=== PATIENT | female | born 1965 | race Caucasian/White ===

== ENCOUNTER 2017-04-05 07:50 | Day surgery (SDC) | payer OTHER ==
[~2017-04-05 07:50] MED LIST: CIPRO500 MG; CIPRO500 MG PO; FLAGYL500MG; FLAGYL500MG PO; LEVSIN0.125 MG; LOSARTAN-HCTZ1 EACH
== END 2017-04-05 11:50 | disposition home or self-care (01) ==
LOC: AMB-ENDOS 07:50
DX: K57.30 Diverticulosis of large intestine without perforation or abscess without bleeding (principal); D12.8 Benign neoplasm of rectum

== ENCOUNTER 2017-10-05 12:29 | Emergency (ER) | payer OTHER ==
[~2017-10-05] VITALS: Ht 160 cm; Wt 83.9 kg
[2017-10-05] MEDS ORDERED: LEVSIN/SL0.125 MG (12:52)
[2017-10-05] MEDS ORDERED: PROVENT1 EACH (12:52)
== END 2017-10-05 23:54 | disposition home or self-care (01) ==
LOC: ER 12:29
DX: K57.92 Diverticulitis of intestine, part unspecified, without perforation or abscess without bleeding (principal); R10.32 Left lower quadrant pain

== ENCOUNTER 2017-11-03 09:15 | Inpatient (IN) | payer OTHER ==
[~2017-11-03] VITALS: Ht 160 cm; Wt 83.9 kg
[~2017-11-03 09:15] MED LIST changes: +LEVSIN/SL0.125 MG; +PROVENT1 EACH
[2017-11-03] MEDS ORDERED: PROBIOTIC1 EAC2 PO (12:34)
[2017-11-24] MEDS ORDERED: OXYC1TAB9 PO (16:31)
[2017-11-24] MEDS ORDERED: INTESTINEX680 M1 PO (16:31)
== END 2017-11-24 18:31 | disposition home or self-care (01) | DRG 330 ==
LOC: O/R 11-21 06:00 → SURG 11-21 06:00
PROVIDERS: Surgery; Urology
PROC: 0DBP4ZZ Excision of Rectum, Percutaneous Endoscopic Approach (ICD-10-PCS; 2017-11-21)
PROC: 0DJD8ZZ Inspection of Lower Intestinal Tract, Via Natural or Artificial Opening Endoscopic (ICD-10-PCS; 2017-11-21)
PROC: 0DTN4ZZ Resection of Sigmoid Colon, Percutaneous Endoscopic Approach (ICD-10-PCS; principal; 2017-11-21 07:00)
PROC: 0UBG4ZZ Excision of Vagina, Percutaneous Endoscopic Approach (ICD-10-PCS; 2017-11-21 07:00)
PROC: 0T788DZ Dilation of Bilateral Ureters with Intraluminal Device, Via Natural or Artificial Opening Endoscopic (ICD-10-PCS; 2017-11-23)
DX: K57.32 Diverticulitis of large intestine without perforation or abscess without bleeding (principal); N82.3 Fistula of vagina to large intestine

== ENCOUNTER 2020-04-12 18:12 | Emergency (ER) | payer OTHER ==
[~2020-04-12] VITALS: Ht 160 cm; Wt 86.2 kg
[~2020-04-12 18:12] MED LIST changes: +INTESTINEX680 M1 PO; +OXYC1TAB9 PO; +PROBIOTIC1 EAC2 PO
[2020-04-12] MEDS ORDERED: HYDRODIURIL12.5 MG (20:17)
[2020-04-12] MEDS ORDERED: MECLIZINE HCL25 MG PO (23:11)
[2020-04-12] MEDS ORDERED: INTESTINEX680 M1 PO (23:11)
[2020-04-12] MEDS ORDERED: PEPCID20 MG PO (23:11)
== END 2020-04-13 00:48 | disposition home or self-care (01) ==
LOC: ER 18:12
DX: R42 Dizziness and giddiness (principal); Z03.818 Encounter for observation for suspected exposure to other biological agents ruled out

== ENCOUNTER 2022-03-21 13:23 | Emergency (ER) | payer OTHER ==
[~2022-03-21] VITALS: Ht 160 cm; Wt 81.6 kg
[~2022-03-21 13:23] MED LIST changes: +HYDRODIURIL12.5 MG; +MECLIZINE HCL25 MG PO; +PEPCID20 MG PO
[2022-03-21] MEDS ORDERED: PEPCID AC20 MG PO (19:42)
== END 2022-03-21 19:52 | disposition home or self-care (01) ==
LOC: ER 13:23
DX: K29.70 Gastritis, unspecified, without bleeding (principal)

== ENCOUNTER 2024-10-15 09:48 | Inpatient (IN) | payer OTHER ==
[~2024-10-15] VITALS: Ht 152.4 cm; Wt 79.4 kg
[~2024-10-15 09:48] MED LIST changes: +PEPCID AC20 MG PO
[2024-10-15] MEDS ORDERED: KETOROLAC TROMETHAMINE 30 MG VIAL ONE (09:59)
[2024-10-15] MEDS ORDERED: 0.9 % SODIUM CHLORIDE 1,000 ML IV SCH ×2 (10:00→19:00)
[2024-10-15] MEDS ORDERED: KETOROLAC TROMETHAMINE 30 MG VIAL IV ONE ×2 (10:15→15:45)
[2024-10-15 11:39] LABS: BASO % 0.1 % (0.1-1.2); EOS # 0.00 (0.04-0.54); EOS % 0.0 % (0.7-7.0); LYMPH # 0.44 (1.18-3.74); LYMPH % 1.6 % (19.3-53.1); MEAN PLATELET VOLUME 10.40 fl (9.4-12.4); MONO # 0.66 (0.24-0.82); MONO % 2.4 % (4.7-12.5); NEUT # 24.04 (1.56-6.13); NEUT % 87.4 % (34.0-71.1); RED CELL DISTRIBUTION WIDTH 14.0 % (11.6-14.4)
[2024-10-15 11:48] LABS: BUN CREA RATIO 15.0 (7.0-25.0); CREATININE SERUM 3.02 mg/dL (0.55-1.02); GFR 15.85; GLUCOSE FASTING 143.0 mg/dL (65-100); OSMOLALITY SERUM 289.0 MOSM/KG (275-295)
[2024-10-15 12:34] LABS: BAND MAN 8.0 %; LYMPHOCYTE MAN 3.0 %; METAMYELOCYTE 2.0 %; MONOCYTE MAN 4.0 %; NEUTROPHILS MAN 76.0 %
[2024-10-15 12:38] LABS: URINE APPEARANCE Turbid; URINE BILIRRUBIN Small (NEGATIVE); URINE BLOOD Small; URINE COLOR Dark Yellow; URINE KETONE 15 (NEGATIVE); URINE LEUKOCYTE Trace; URINE NITRATE Negative; URINE UROBILINOGEN 1.0 E.U./dl
[2024-10-15 12:42] LABS: URINE BACTERIA 8779.1 uL (0.0-1933); URINE EPITHELIAL CELLS 137.5 uL (0.0-38.8); URINE RBC 26.5 uL (0.0-20.8); URINE WBC 193.2 uL (0.0-23.2)
[2024-10-15 12:47] LABS: URINE CAST > 21.83 uL (0.0-1.40); URINE GLUCOSE 250 MG/DL (NEGATIVE); URINE PROTEIN 100 (NEGATIVE)
[2024-10-15 12:53] LABS: URINE CRYSTALS MODERATE /HPF
[2024-10-15] MEDS ORDERED: CEFTRIAXONE SODIUM 1,000 MG VIAL IV ONE (14:15)
[2024-10-15] MEDS ORDERED: FAMOTIDINE/PF 20 MG in 0.9 % SODIUM CHLORIDE 8 ML IV PUSH SCH (18:50)
[2024-10-15] MEDS ORDERED: CEFTRIAXONE SODIUM 2,000 MG in 0.9 % SODIUM CHLORIDE 100 ML IV SCH (18:50)
[2024-10-15] MEDS ORDERED: AZITHROMYCIN 500 MG in DEXTROSE 5 % IN WATER 250 ML IV SCH (18:50)
[2024-10-15] MEDS ORDERED: IPRATROPIUM BROMIDE 0.5 MG/2.5 ML AMPUL.NEB IH SCH (18:56)
[2024-10-15] MEDS ORDERED: GUAIFEN/DEXTROMETHORPHAN/PE 10 ML BLIST.PACK PO SCH (18:57)
[2024-10-15] MEDS ORDERED: METHYLPREDNISOLONE SOD SUCC 125 MG VIAL IV ONE (19:00)
[2024-10-15] MEDS ORDERED: 0.9 % SODIUM CHLORIDE 1,000 ML IV ONE (19:00)
[2024-10-15] MEDS ORDERED: ACETAMINOPHEN 500 MG GEL..CAP PO PRN (19:00)
[2024-10-15 20:48] LABS: ABG PH 7.429 (7.35-7.45); ABG PO2 69.2 mmHg (80-100); BICARBONATE 18.4 mmol/l (23-25)
[2024-10-15 21:08] VITALS: BP 130/80
[2024-10-15 21:43] LABS: o2 21 %
[2024-10-15] MEDS ORDERED: MORPHINE SULFATE 4 MG/ML CARTRIDGE IV ONE (22:30)
[2024-10-15] MEDS ORDERED: KETOROLAC TROMETHAMINE 15 MG VIAL IV ONE (22:30)
[2024-10-15 22:44] LABS: D DIMER 1.61 MG/L
[2024-10-15 22:47] LABS: INR 1.37
[2024-10-15 23:37] VITALS: O2SAT 95
[2024-10-16] VITALS (8 sets, daily range): BP systolic 100–116; BP diastolic 67–75; O2SAT 90–99
[2024-10-16] MEDS ORDERED: hydrALAZINE HCL 20 MG VIAL IV PRN (08:30)
[2024-10-16] MEDS ORDERED: ENOXAPARIN SODIUM 30 MG/0.3 ML SYRINGE SUBCUTANEO SCH (09:00)
[2024-10-16] MEDS ORDERED: AMLODIPINE BESYLATE 5 MG TABLET PO SCH (09:00)
[2024-10-16] MEDS ORDERED: TRAMADOL HCL 50 MG TABLET PO PRN (10:15)
[2024-10-16 10:59] LABS: COVID-19 AG NEGATIVE (NEGATIVE)
[2024-10-16] MEDS ORDERED: IPRATROPIUM/ALBUTEROL SULFATE 3 ML AMPUL.NEB IH SCH (13:00)
[2024-10-16] MEDS ORDERED: METHYLPREDNISOLONE SOD SUCC 40 MG VIAL IV SCH (13:00)
[2024-10-16] MEDS ORDERED: TUBERCULIN,PURIF.PROT.DERIV. 10 SKIN.TEST SKIN.TEST ID NR (16:10)
[2024-10-16] MEDS ORDERED: LEVALBUTEROL HCL 1.25 MG/3 ML SOLUTION IH SCH (21:00)
[2024-10-16] MEDS ORDERED: AZITHROMYCIN 500 MG VIAL IV SCH (21:00)
[2024-10-16] MEDS ORDERED: CEFTRIAXONE SODIUM 2,000 MG in 0.9 % SODIUM CHLORIDE 100 ML IV SCH (21:00)
[2024-10-16] MEDS ORDERED: AZITHROMYCIN 500 MG in DEXTROSE 5 % IN WATER 250 ML IV SCH (21:00)
[2024-10-17] VITALS (8 sets, daily range): BP systolic 132–143; BP diastolic 78–88; O2SAT 89–99
[2024-10-17 06:46] LABS: ALT/SGPT 15.0 U/L (12-78); AST/SGOT 15.0 U/L (15-37); BILIRUBIN TOTAL 0.3 mg/dL (0.3-1.2); BUN CREA RATIO 46.0 (7.0-25.0); CREATININE SERUM 1.27 mg/dL (0.55-1.02); GFR 43.07; GLOBULINA 3.5 G/DL (2.4-3.5); GLUCOSE FASTING 138.0 mg/dL (65-100); LDH 260.0 U/L (84-246); OSMOLALITY SERUM 296.0 MOSM/KG (275-295)
[2024-10-17 06:49] LABS: BASO % 0.0 % (0.1-1.2); EOS # 0.00 (0.04-0.54); EOS % 0.0 % (0.7-7.0); LYMPH # 0.52 (1.18-3.74); LYMPH % 1.7 % (19.3-53.1); MEAN PLATELET VOLUME 11.40 fl (9.4-12.4); MONO # 0.58 (0.24-0.82); MONO % 1.9 % (4.7-12.5); NEUT # 29.41 (1.56-6.13); NEUT % 95.6 % (34.0-71.1); RED CELL DISTRIBUTION WIDTH 13.8 % (11.6-14.4)
[2024-10-17] MEDS ORDERED: LINEZOLID 600 MG TABLET PO SCH (21:00)
[2024-10-18] VITALS (9 sets, daily range): BP systolic 160–170; BP diastolic 84–100; O2SAT 95–98
[2024-10-18 06:10] LABS: BASO % 0.0 % (0.1-1.2); EOS # 0.01 (0.04-0.54); EOS % 0.0 % (0.7-7.0); LYMPH # 0.62 (1.18-3.74); LYMPH % 2.6 % (19.3-53.1); MEAN PLATELET VOLUME 11.10 fl (9.4-12.4); MONO # 1.06 (0.24-0.82); MONO % 4.4 % (4.7-12.5); NEUT # 21.12 (1.56-6.13); NEUT % 88.1 % (34.0-71.1); RED CELL DISTRIBUTION WIDTH 14.0 % (11.6-14.4)
[2024-10-18 07:06] LABS: ALT/SGPT 17.0 U/L (12-78); AST/SGOT 13.0 U/L (15-37); BILIRUBIN TOTAL 0.35 mg/dL (0.3-1.2); BUN CREA RATIO 49.0 (7.0-25.0); CREATININE SERUM 0.61 mg/dL (0.55-1.02); GFR 100.39; GLOBULINA 3.5 G/DL (2.4-3.5); GLUCOSE FASTING 152.0 mg/dL (65-100); OSMOLALITY SERUM 292.0 MOSM/KG (275-295)
[2024-10-18 07:19] LABS: BAND MAN 7.0 %; LYMPHOCYTE MAN 1.0 %; MONOCYTE MAN 4.0 %; NEUTROPHILS MAN 85.0 %
[2024-10-18] MEDS ORDERED: NICOTINE 21MG/24HR PATCH.TD24 TD SCH (09:00)
[2024-10-18] MEDS ORDERED: LACTOBACILLUS ACIDOPHILUS 1 CAP CAP PO SCH (13:00)
[2024-10-18] MEDS ORDERED: SODIUM CHLORIDE 0.45 % 1,000 ML IV SCH (15:00)
[2024-10-18] MEDS ORDERED: MORPHINE SULFATE 4 MG/ML CARTRIDGE IV PRN (23:45)
[2024-10-18] MEDS ORDERED: TRAMADOL HCL 50 MG TABLET PO PRN (23:45)
[2024-10-19] VITALS (9 sets, daily range): BP systolic 153–186; BP diastolic 85–98; O2SAT 92–99
[2024-10-19] MEDS ORDERED: hydrALAZINE HCL 50 MG,hydrALAZINE HCL 25 MG PO SCH (09:00)
[2024-10-19] MEDS ORDERED: IRBESARTAN 150 MG TABLET PO SCH (09:00)
[2024-10-19 09:19] LABS: BASO % 0.7 % (0.1-1.2); EOS # 0.00 (0.04-0.54); EOS % 0.0 % (0.7-7.0); LYMPH # 0.97 (1.18-3.74); LYMPH % 5.1 % (19.3-53.1); MEAN PLATELET VOLUME 11.00 fl (9.4-12.4); MONO # 1.36 (0.24-0.82); MONO % 7.2 % (4.7-12.5); NEUT # 13.53 (1.56-6.13); NEUT % 71.2 % (34.0-71.1); RED CELL DISTRIBUTION WIDTH 14.6 % (11.6-14.4)
[2024-10-19 09:51] LABS: ALT/SGPT 39.0 U/L (12-78); AST/SGOT 23.0 U/L (15-37); BILIRUBIN TOTAL 0.36 mg/dL (0.3-1.2); BUN CREA RATIO 40.0 (7.0-25.0); CREATININE SERUM 0.53 mg/dL (0.55-1.02); GFR 118.07; GLOBULINA 3.4 G/DL (2.4-3.5); GLUCOSE FASTING 130.0 mg/dL (65-100); LDH 307.0 U/L (84-246); OSMOLALITY SERUM 292.0 MOSM/KG (275-295)
[2024-10-19 10:02] LABS: BAND MAN 9.0 %; LYMPHOCYTE MAN 3.0 %; MONOCYTE MAN 14.0 %; NEUTROPHILS MAN 74.0 %
[2024-10-19] MEDS ORDERED: POLYETHYLENE GLYCOL 3350 17 GM BLIST.PACK PO SCH (17:00)
[2024-10-19] MEDS ORDERED: AMINO ACIDS/PROTEIN HYDROLYS 30 ML BLIST.PACK PO SCH (17:00)
[2024-10-20] VITALS (8 sets, daily range): BP systolic 151–194; BP diastolic 89–110; O2SAT 90–99
[2024-10-20] MEDS ORDERED: METHYLPREDNISOLONE SOD SUCC 40 MG VIAL IV SCH (21:00)
[2024-10-21] VITALS (10 sets, daily range): BP systolic 144–167; BP diastolic 83–93; O2SAT 90–99
[2024-10-21] MEDS ORDERED: PATIENTS OWN MEDICATION (MEDICAMENTO EN PISO) PO SCH (09:00)
[2024-10-21] MEDS ORDERED: NIFEDIPINE 30 MG TAB.SA.OSM PO SCH (09:00)
[2024-10-21] MEDS ORDERED: LIDOCAINE HCL 1% 20 ML VIAL IJ STA (19:38)
[2024-10-21] MEDS ORDERED: MORPHINE SULFATE 4 MG/ML CARTRIDGE IV ONE (20:00)
[2024-10-21] MEDS ORDERED: IPRATROPIUM BROMIDE 0.5 MG/2.5 ML AMPUL.NEB IH STA (20:38)
[2024-10-21] MEDS ORDERED: LEVALBUTEROL HCL 1.25 MG/3 ML SOLUTION IH STA (20:39)
[2024-10-21] MEDS ORDERED: MORPHINE SULFATE 4 MG/ML VIAL IV PRN (20:45)
[2024-10-21] MEDS ORDERED: TRAMADOL HCL 50 MG TABLET PO PRN (20:45)
[2024-10-22] VITALS (11 sets, daily range): BP systolic 112–158; BP diastolic 61–88; O2SAT 90–100
[2024-10-22 06:40] LABS: BASO % 0.2 % (0.1-1.2); EOS # 0.01 (0.04-0.54); EOS % 0.0 % (0.7-7.0); LYMPH # 2.04 (1.18-3.74); LYMPH % 10.2 % (19.3-53.1); MEAN PLATELET VOLUME 10.40 fl (9.4-12.4); MONO # 1.00 (0.24-0.82); MONO % 5.0 % (4.7-12.5); NEUT # 15.96 (1.56-6.13); NEUT % 79.6 % (34.0-71.1); RED CELL DISTRIBUTION WIDTH 14.6 % (11.6-14.4)
[2024-10-22 07:54] LABS: NEUTROPHILS MAN 83.0 %
[2024-10-22 07:55] LABS: BAND MAN 1.0 %; LYMPHOCYTE MAN 7.0 %; MONOCYTE MAN 9.0 %
[2024-10-22] MEDS ORDERED: PANTOPRAZOLE SODIUM 40 MG TABLET.DR PO SCH (09:00)
[2024-10-22 09:12] LABS: BUN CREA RATIO 39.0 (7.0-25.0); CREATININE SERUM 0.44 mg/dL (0.55-1.02); GFR 146.36; GLOBULINA 3.3 G/DL (2.4-3.5); GLUCOSE FASTING 108.0 mg/dL (65-100); OSMOLALITY SERUM 289.0 MOSM/KG (275-295)
[2024-10-22 09:13] LABS: ALT/SGPT 38.0 U/L (12-78); AST/SGOT 10.0 U/L (15-37); BILIRUBIN TOTAL 0.54 mg/dL (0.3-1.2)
[2024-10-22] MEDS ORDERED: MEROPENEM 500 MG/VIAL VIAL IV SCH (14:00)
[2024-10-22 18:34] LABS: ABG PH 7.453 (7.35-7.45); ABG PO2 109.1 mmHg (80-100); BICARBONATE 29.7 mmol/l (23-25); o2 100 %
[2024-10-23 04:04] VITALS: BP 137/78; O2SAT 99
[2024-10-23 07:07] VITALS: BP 139/73; O2SAT 19
[2024-10-23 12:00] VITALS: BP 129/57; O2SAT 98
[2024-10-23 15:35] VITALS: BP 129/68; O2SAT 95
[2024-10-23 20:00] VITALS: BP 100/55; O2SAT 100
[2024-10-23] MEDS ORDERED: TRAMADOL HCL 50 MG TABLET PO PRN (21:45)
[2024-10-23] MEDS ORDERED: MORPHINE SULFATE 4 MG/ML VIAL IV PRN (21:45)
[2024-10-23 23:42] VITALS: BP 127/79; O2SAT 100
[2024-10-24 04:00] VITALS: BP 133/74; O2SAT 100
[2024-10-24 07:23] VITALS: BP 114/63; O2SAT 100
[2024-10-24 08:09] LABS: BASO % 0.1 % (0.1-1.2); EOS # 0.08 (0.04-0.54); EOS % 0.3 % (0.7-7.0); LYMPH # 1.22 (1.18-3.74); LYMPH % 4.2 % (19.3-53.1); MEAN PLATELET VOLUME 10.00 fl (9.4-12.4); MONO # 1.34 (0.24-0.82); MONO % 4.6 % (4.7-12.5); NEUT # 25.88 (1.56-6.13); NEUT % 89.5 % (34.0-71.1); RED CELL DISTRIBUTION WIDTH 14.4 % (11.6-14.4)
[2024-10-24 09:29] LABS: ALT/SGPT 27.0 U/L (12-78); AST/SGOT 9.0 U/L (15-37); BILIRUBIN TOTAL 0.66 mg/dL (0.3-1.2); BUN CREA RATIO 39.0 (7.0-25.0); CREATININE SERUM 0.31 mg/dL (0.55-1.02); GFR 219.24; GLOBULINA 3.1 G/DL (2.4-3.5); GLUCOSE FASTING 112.0 mg/dL (65-100); LDH 191.0 U/L (84-246); OSMOLALITY SERUM 280.0 MOSM/KG (275-295)
[2024-10-24 15:52] VITALS: O2SAT 98
[2024-10-24] MEDS ORDERED: FLUCONAZOLE IN NACL,ISO-OSM 400 MG/200 ML PIGGYBAG IV NR (16:00)
[2024-10-24 20:00] VITALS: O2SAT 95
[2024-10-24 23:08] VITALS: BP 129/68; O2SAT 93
[2024-10-25 04:03] VITALS: BP 136/81; O2SAT 94
[2024-10-25 06:52] LABS: BASO % 0.1 % (0.1-1.2); EOS # 0.10 (0.04-0.54); EOS % 0.5 % (0.7-7.0); LYMPH # 1.31 (1.18-3.74); LYMPH % 6.7 % (19.3-53.1); MEAN PLATELET VOLUME 10.60 fl (9.4-12.4); MONO # 1.24 (0.24-0.82); MONO % 6.3 % (4.7-12.5); NEUT # 16.72 (1.56-6.13); NEUT % 85.3 % (34.0-71.1); RED CELL DISTRIBUTION WIDTH 14.6 % (11.6-14.4)
[2024-10-25 07:15] VITALS: BP 129/71; O2SAT 97
[2024-10-25 12:00] VITALS: BP 118/55; O2SAT 97
[2024-10-25] MEDS ORDERED: FLUCONAZOLE IN NACL,ISO-OSM 200 MG/100 ML PIGGYBAG IV SCH (12:00)
[2024-10-25 15:09] VITALS: BP 109/58; O2SAT 95
[2024-10-25] MEDS ORDERED: GUAIFEN/DEXTROMETHORPHAN/PE 10 ML BLIST.PACK PO SCH (17:00)
[2024-10-25] MEDS ORDERED: MIDAZOLAM HCL 2 MG/2 ML VIAL IV PUSH ONE (19:30)
[2024-10-25] MEDS ORDERED: fentaNYL CITRATE 50 MCG/ML AMPUL IV PUSH ONE (19:30)
[2024-10-25 21:00] VITALS: BP 125/60; O2SAT 92
[2024-10-25] MEDS ORDERED: METHYLPREDNISOLONE SOD SUCC 40 MG VIAL IM SCH (21:00)
[2024-10-25 23:13] VITALS: BP 99/73; O2SAT 92
[2024-10-26] MEDS ORDERED: TRAMADOL HCL 50 MG TABLET PO PRN (00:30)
[2024-10-26] MEDS ORDERED: MORPHINE SULFATE 4 MG/ML CARTRIDGE IV PRN (00:30)
[2024-10-26 04:10] VITALS: BP 115/64; O2SAT 94
[2024-10-26] MEDS ORDERED: METHYLPREDNISOLONE SOD SUCC 40 MG VIAL IV SCH (05:00)
[2024-10-26 07:24] VITALS: BP 127/67; O2SAT 92
[2024-10-26 10:10] LABS: ABG PH 7.448 (7.35-7.45); ABG PO2 60.1 mmHg (80-100); BICARBONATE 26.5 mmol/l (23-25)
[2024-10-26 11:10] LABS: o2 46 %
[2024-10-26 12:00] VITALS: BP 149/93; O2SAT 95
[2024-10-26 16:00] VITALS: BP 135/66; O2SAT 97
[2024-10-26] MEDS ORDERED: ENOXAPARIN SODIUM 40 MG/0.4 ML SYRINGE SUBCUTANEO SCH (17:00)
[2024-10-27] VITALS: BP 160/81; O2SAT 96
[2024-10-27 07:13] LABS: BASO % 0.1 % (0.1-1.2); EOS # 0.00 (0.04-0.54); EOS % 0.0 % (0.7-7.0); LYMPH # 0.39 (1.18-3.74); LYMPH % 2.7 % (19.3-53.1); MEAN PLATELET VOLUME 10.30 fl (9.4-12.4); MONO # 0.71 (0.24-0.82); MONO % 4.9 % (4.7-12.5); NEUT # 13.33 (1.56-6.13); NEUT % 91.5 % (34.0-71.1); RED CELL DISTRIBUTION WIDTH 14.3 % (11.6-14.4)
[2024-10-27 07:22] VITALS: BP 123/55; O2SAT 100
[2024-10-27 07:47] LABS: ALT/SGPT 27.0 U/L (12-78); AST/SGOT 13.0 U/L (15-37); BILIRUBIN TOTAL 0.38 mg/dL (0.3-1.2); BUN CREA RATIO 45.0 (7.0-25.0); CREATININE SERUM 0.4 mg/dL (0.55-1.02); GFR 163.37; GLOBULINA 3.9 G/DL (2.4-3.5); GLUCOSE FASTING 151.0 mg/dL (65-100); OSMOLALITY SERUM 288.0 MOSM/KG (275-295)
[2024-10-27 12:00] VITALS: O2SAT 97
[2024-10-27 15:10] VITALS: BP 151/72; O2SAT 98
[2024-10-27 18:35] VITALS: BP 120/75; O2SAT 96
[2024-10-27] MEDS ORDERED: ZOLPIDEM TARTRATE 5 MG TABLET PO PRN (21:00)
[2024-10-28 03:10] VITALS: BP 131/76; O2SAT 97
[2024-10-28 07:55] LABS: BASO % 0.1 % (0.1-1.2); EOS # 0.00 (0.04-0.54); EOS % 0.0 % (0.7-7.0); LYMPH # 0.34 (1.18-3.74); LYMPH % 2.5 % (19.3-53.1); MEAN PLATELET VOLUME 10.10 fl (9.4-12.4); MONO # 0.55 (0.24-0.82); MONO % 4.0 % (4.7-12.5); NEUT # 12.75 (1.56-6.13); NEUT % 92.7 % (34.0-71.1); RED CELL DISTRIBUTION WIDTH 14.6 % (11.6-14.4)
[2024-10-28 08:00] VITALS: BP 132/71; O2SAT 95
[2024-10-28 08:13] LABS: ALT/SGPT 36.0 U/L (12-78); AST/SGOT 15.0 U/L (15-37); BILIRUBIN TOTAL 0.2 mg/dL (0.3-1.2); BUN CREA RATIO 46.0 (7.0-25.0); CREATININE SERUM 0.46 mg/dL (0.55-1.02); GFR 139.04; GLOBULINA 3.8 G/DL (2.4-3.5); GLUCOSE FASTING 168.0 mg/dL (65-100); OSMOLALITY SERUM 288.0 MOSM/KG (275-295)
[2024-10-28 08:14] VITALS: BP 132/71; O2SAT 95
[2024-10-28] MEDS ORDERED: AMINO ACIDS/PROTEIN HYDROLYS 30 ML BLIST.PACK PO SCH (13:00)
[2024-10-28 17:04] VITALS: BP 144/69; O2SAT 96
[2024-10-28] MEDS ORDERED: TRAMADOL HCL 50 MG TABLET PO PRN (23:30)
[2024-10-29 00:51] VITALS: BP 130/77; O2SAT 98
[2024-10-29 07:48] LABS: BASO % 0.1 % (0.1-1.2); EOS # 0.00 (0.04-0.54); EOS % 0.0 % (0.7-7.0); LYMPH # 0.32 (1.18-3.74); LYMPH % 3.7 % (19.3-53.1); MEAN PLATELET VOLUME 10.50 fl (9.4-12.4); MONO # 0.39 (0.24-0.82); MONO % 4.5 % (4.7-12.5); NEUT # 7.90 (1.56-6.13); NEUT % 91.1 % (34.0-71.1); RED CELL DISTRIBUTION WIDTH 14.2 % (11.6-14.4)
[2024-10-29 08:00] VITALS: BP 148/84; O2SAT 96
[2024-10-29] MEDS ORDERED: SOD FERRIC GLUC COMPLX/SUCROSE 62.5 MG in 0.9 % SODIUM CHLORIDE 50 ML IV SCH (09:00)
[2024-10-29 12:41] LABS: ALT/SGPT 49.0 U/L (12-78); AST/SGOT 15.0 U/L (15-37); BILIRUBIN TOTAL 0.37 mg/dL (0.3-1.2); BUN CREA RATIO 30.0 (7.0-25.0); CREATININE SERUM 0.63 mg/dL (0.55-1.02); GFR 96.72; GLOBULINA 4.1 G/DL (2.4-3.5); OSMOLALITY SERUM 290.0 MOSM/KG (275-295)
[2024-10-29 12:42] LABS: GLUCOSE FASTING 282.0 mg/dL (65-100)
[2024-10-29 17:57] VITALS: BP 137/75; O2SAT 97
[2024-10-30] MEDS ORDERED: METHYLPREDNISOLONE SOD SUCC 40 MG VIAL IV SCH (01:00)
[2024-10-30 08:00] VITALS: BP 157/84; O2SAT 97
[2024-10-30 17:13] VITALS: BP 139/70; O2SAT 96
[2024-10-31 01:04] VITALS: BP 126/73; O2SAT 98
[2024-10-31] MEDS ORDERED: TRAMADOL HCL 50 MG TABLET PO PRN (07:15)
[2024-10-31 09:33] LABS: ABG PH 7.434 (7.35-7.45); ABG PO2 86.5 mmHg (80-100); BICARBONATE 25.7 mmol/l (23-25)
[2024-10-31 15:55] LABS: o2 21 %
[2024-10-31 17:00] VITALS: BP 145/96; O2SAT 97
[2024-10-31] MEDS ORDERED: AMINO ACIDS 1 EACH TABLET PO SCH (17:00)
[2024-11-01 03:30] VITALS: BP 124/72; O2SAT 95
[2024-11-01 06:51] LABS: BASO % 0.0 % (0.1-1.2); EOS # 0.00 (0.04-0.54); EOS % 0.0 % (0.7-7.0); LYMPH # 0.49 (1.18-3.74); LYMPH % 8.6 % (19.3-53.1); MEAN PLATELET VOLUME 9.40 fl (9.4-12.4); MONO # 0.32 (0.24-0.82); MONO % 5.6 % (4.7-12.5); NEUT # 4.85 (1.56-6.13); NEUT % 85.4 % (34.0-71.1); RED CELL DISTRIBUTION WIDTH 13.8 % (11.6-14.4)
[2024-11-01 07:44] LABS: ALT/SGPT 47.0 U/L (12-78); AST/SGOT 10.0 U/L (15-37); BILIRUBIN TOTAL 0.55 mg/dL (0.3-1.2); BUN CREA RATIO 34.0 (7.0-25.0); CREATININE SERUM 0.47 mg/dL (0.55-1.02); GFR 135.63; GLOBULINA 3.6 G/DL (2.4-3.5); GLUCOSE FASTING 173.0 mg/dL (65-100); OSMOLALITY SERUM 281.0 MOSM/KG (275-295)
[2024-11-01 08:00] VITALS: BP 143/83; O2SAT 98
[2024-11-01 16:00] VITALS: BP 120/71; O2SAT 97
[2024-11-01] MEDS ORDERED: MIDAZOLAM HCL 2 MG/2 ML VIAL IV PUSH ONE (17:45)
[2024-11-01] MEDS ORDERED: fentaNYL CITRATE 50 MCG/ML AMPUL IV PUSH ONE (18:00)
[2024-11-02 01:33] VITALS: BP 126/78; O2SAT 100
[2024-11-02 13:45] VITALS: BP 149/83; O2SAT 98
[2024-11-02 17:56] VITALS: BP 109/74; O2SAT 97
[2024-11-03 00:41] VITALS: BP 100/60; O2SAT 95
[2024-11-03 08:00] VITALS: BP 128/65; O2SAT 98
[2024-11-03] MEDS ORDERED: TRAMADOL HCL 50 MG TABLET PO PRN (10:45)
[2024-11-03] MEDS ORDERED: MAGNESIUM SULFATE IN WATER 50 ML IV NR (12:00)
[2024-11-03 16:32] VITALS: BP 90/60; O2SAT 99
[2024-11-03 17:29] VITALS: BP 101/58; O2SAT 100
[2024-11-03 19:00] VITALS: BP 112/69
[2024-11-04 01:05] VITALS: BP 101/61; O2SAT 97
[2024-11-04 05:32] LABS: BASO % 0.1 % (0.1-1.2); EOS # 0.23 (0.04-0.54); EOS % 2.7 % (0.7-7.0); LYMPH # 1.39 (1.18-3.74); LYMPH % 16.2 % (19.3-53.1); MEAN PLATELET VOLUME 9.50 fl (9.4-12.4); MONO # 0.56 (0.24-0.82); MONO % 6.5 % (4.7-12.5); NEUT # 6.37 (1.56-6.13); NEUT % 74.2 % (34.0-71.1); RED CELL DISTRIBUTION WIDTH 14.6 % (11.6-14.4)
[2024-11-04 05:52] LABS: ALT/SGPT 33.0 U/L (12-78); AST/SGOT 9.0 U/L (15-37); BILIRUBIN TOTAL 0.35 mg/dL (0.3-1.2); BUN CREA RATIO 34.0 (7.0-25.0); CREATININE SERUM 0.58 mg/dL (0.55-1.02); GFR 106.4; GLOBULINA 3.2 G/DL (2.4-3.5); GLUCOSE FASTING 141.0 mg/dL (65-100); OSMOLALITY SERUM 281.0 MOSM/KG (275-295)
[2024-11-04 10:31] VITALS: BP 101/63; O2SAT 95
[2024-11-04 15:56] VITALS: BP 117/78; O2SAT 97
[2024-11-05 00:37] VITALS: BP 108/61; O2SAT 96
[2024-11-05 08:17] VITALS: BP 93/57; O2SAT 98
[2024-11-05 17:06] VITALS: BP 102/68; O2SAT 100
[2024-11-05] MEDS ORDERED: LEVALBUTEROL HCL 1.25 MG/3 ML SOLUTION IH SCH (18:00)
[2024-11-06 00:05] VITALS: BP 130/75; O2SAT 97
[2024-11-06 08:24] VITALS: BP 135/77; O2SAT 100
[2024-11-07 00:10] VITALS: BP 132/91; O2SAT 95
[2024-11-07 06:48] LABS: BASO % 0.1 % (0.1-1.2); EOS # 0.31 (0.04-0.54); EOS % 4.6 % (0.7-7.0); LYMPH # 0.85 (1.18-3.74); LYMPH % 12.7 % (19.3-53.1); MEAN PLATELET VOLUME 9.60 fl (9.4-12.4); MONO # 0.68 (0.24-0.82); MONO % 10.1 % (4.7-12.5); NEUT # 4.83 (1.56-6.13); NEUT % 72.1 % (34.0-71.1); RED CELL DISTRIBUTION WIDTH 14.7 % (11.6-14.4)
[2024-11-07] MEDS ORDERED: TRAMADOL HCL 50 MG TABLET PO PRN (07:30)
[2024-11-07 07:45] LABS: ALT/SGPT 24.0 U/L (12-78); AST/SGOT 7.0 U/L (15-37); BILIRUBIN TOTAL 0.31 mg/dL (0.3-1.2); BUN CREA RATIO 31.0 (7.0-25.0); CREATININE SERUM 0.49 mg/dL (0.55-1.02); GFR 129.26; GLOBULINA 3.2 G/DL (2.4-3.5); GLUCOSE FASTING 104.0 mg/dL (65-100); OSMOLALITY SERUM 282.0 MOSM/KG (275-295)
[2024-11-07 08:23] VITALS: BP 107/70; O2SAT 97
[2024-11-07 16:00] VITALS: BP 109/71; O2SAT 95
[2024-11-08 00:59] VITALS: BP 114/70; O2SAT 100
[2024-11-08 08:00] VITALS: BP 152/83; O2SAT 96
[2024-11-08] MEDS ORDERED: PRE PROTEIN1 EACH PO (10:03)
[2024-11-08] MEDS ORDERED: PANTOPRAZOLE SO40 MG PO (10:03)
[2024-11-08] MEDS ORDERED: NICOTINE 21MG/24HR P TD (10:03)
[2024-11-08] MEDS ORDERED: FAMOTIDINE20 MG PO (10:03)
[2024-11-08] MEDS ORDERED: ALTIPRES LIQUI473 ML PO (10:03)
[2024-11-08] MEDS ORDERED: TRAMADOL HCL50 MG PO (10:03)
[2024-11-08] MEDS ORDERED: ZOLPIDEM TARTRAT5 MG PO (10:03)
[2024-11-08] MEDS ORDERED: INTESTINEX680 M1 PO (10:03)
[2024-11-08] MEDS ORDERED: XOPENEX CO1.25 MG/0. IH (10:03)
== END 2024-11-08 15:24 | disposition home or self-care (01) | DRG 853 ==
LOC: ER 09:48 → MEDJ 19:29 → ICU 10-22 18:40 → SURG 10-27 19:09
PROVIDERS: Emergency Medicine; General Practice; Internal Medicine; Internal Medicine Infectious Disease; Internal Medicine Nephrology; ADMIT Internal Medicine; ATTEND Internal Medicine
PROC: BW21ZZZ Computerized Tomography (CT Scan) of Abdomen and Pelvis (ICD-10-PCS; principal; 2024-10-15)
PROC: BB24ZZZ Computerized Tomography (CT Scan) of Bilateral Lungs (ICD-10-PCS; 2024-10-15)
PROC: 3E0F7GC Introduction of Other Therapeutic Substance into Respiratory Tract, Via Natural or Artificial Opening (ICD-10-PCS; 2024-10-15)
PROC: 4A12X4Z Monitoring of Cardiac Electrical Activity, External Approach (ICD-10-PCS; 2024-10-15)
PROC: 0W9B00Z Drainage of Left Pleural Cavity with Drainage Device, Open Approach (ICD-10-PCS; 2024-10-21)
PROC: BB24YZZ Computerized Tomography (CT Scan) of Bilateral Lungs using Other Contrast (ICD-10-PCS; 2024-10-24)
PROC: 0W9F3ZZ Drainage of Abdominal Wall, Percutaneous Approach (ICD-10-PCS; 2024-10-25)
PROC: 0W9B40Z Drainage of Left Pleural Cavity with Drainage Device, Percutaneous Endoscopic Approach (ICD-10-PCS; 2024-10-25)
PROC: BB24ZZZ Computerized Tomography (CT Scan) of Bilateral Lungs (ICD-10-PCS; 2024-10-31)
PROC: 02HV33Z Insertion of Infusion Device into Superior Vena Cava, Percutaneous Approach (ICD-10-PCS; 2024-11-07)
DX: A41.9 Sepsis, unspecified organism (principal); J18.9 Pneumonia, unspecified organism; N17.8 Other acute kidney failure; J93.83 Other pneumothorax; Z72.0 Tobacco use; I10 Essential (primary) hypertension; K52.9 Noninfective gastroenteritis and colitis, unspecified; K29.50 Unspecified chronic gastritis without bleeding

== ENCOUNTER 2024-12-20 23:07 | Inpatient (IN) | payer OTHER ==
[~2024-12-20] VITALS: Ht 160 cm; Wt 81.6 kg
[~2024-12-20 23:07] MED LIST changes: +ALTIPRES LIQUI473 ML PO; +FAMOTIDINE20 MG PO; +NICOTINE 21MG/24HR P TD; +PANTOPRAZOLE SO40 MG PO; +PRE PROTEIN1 EACH PO; +TRAMADOL HCL50 MG PO; +XOPENEX CO1.25 MG/0. IH; +ZOLPIDEM TARTRAT5 MG PO
[2024-12-20] MEDS ORDERED: NORVASC5 MG PO (23:27)
--- NOTE | 2024-12-20 23:29 | NUR ---
PACIENTE ALERTA Y ORIENTADA X3. REFIERE VENIR POR REFERIDO DE DR MIMI CHILDRESS PARA ADMISION POR PROCEDIMIENTO. SE ESTIMAN VITALES Y SE UBICA.
[2024-12-21] MEDS ORDERED: ALBUTEROL SULFATE 3 ML/2.5 MG AMPUL.NEB IH SCH (01:41)
[2024-12-21] MEDS ORDERED: MEROPENEM 500 MG/VIAL VIAL IV SCH ×4 (01:42→18:00)
[2024-12-21] MEDS ORDERED: 0.9 % SODIUM CHLORIDE 1,000 ML IV ONE (01:45)
--- NOTE | 2024-12-21 02:11 | NUR ---
RN DERRICK EDUCA ACERCA DE [place] ORDENADO Y REFIERE ENTENDER. CANALIZA Y COLECTA MUESTRAS DE LABORATORIO MEDIANTE MEDIDAS ASEPTICAS. JEANNE ENVASE DE UA.
[2024-12-21 02:15] LABS: BASO % 0.6 % (0.1-1.2); EOS # 0.18 (0.04-0.54); EOS % 2.5 % (0.7-7.0); LYMPH # 1.54 (1.18-3.74); LYMPH % 21.8 % (19.3-53.1); MEAN PLATELET VOLUME 9.40 fl (9.4-12.4); MONO # 0.64 (0.24-0.82); MONO % 9.1 % (4.7-12.5); NEUT # 4.65 (1.56-6.13); NEUT % 65.9 % (34.0-71.1); RED CELL DISTRIBUTION WIDTH 14.5 % (11.6-14.4)
[2024-12-21 02:29] LABS: URINE APPEARANCE Clear; URINE BILIRRUBIN Negative (NEGATIVE); URINE BLOOD Negative; URINE COLOR Yellow; URINE GLUCOSE Negative (NEGATIVE); URINE KETONE Negative (NEGATIVE); URINE LEUKOCYTE Negative; URINE NITRATE Negative; URINE PROTEIN Negative (NEGATIVE); URINE UROBILINOGEN 0.2 E.U./dl
[2024-12-21 02:33] LABS: URINE BACTERIA 149.9 uL (0.0-1933); URINE EPITHELIAL CELLS 4.9 uL (0.0-38.8); URINE RBC 2.7 uL (0.0-20.8); URINE WBC 14.7 uL (0.0-23.2)
[2024-12-21 02:34] LABS: URINE CAST 0.00 uL (0.0-1.40)
[2024-12-21 02:39] LABS: ALT/SGPT 24.0 U/L (12-78); AST/SGOT 8.0 U/L (15-37); BILIRUBIN TOTAL 0.28 mg/dL (0.3-1.2); BUN CREA RATIO 27.0 (7.0-25.0); CREATININE SERUM 0.66 mg/dL (0.55-1.02); GFR 91.66; GLOBULINA 3.4 G/DL (2.4-3.5); GLUCOSE FASTING 131.0 mg/dL (65-100); OSMOLALITY SERUM 292.0 MOSM/KG (275-295)
[2024-12-21 02:45] LABS: INR 1.0
[2024-12-21] MEDS ORDERED: ALBUTEROL SULFATE 3 ML/2.5 MG AMPUL.NEB IH ONE ×3 (03:03→13:19)
--- NOTE | 2024-12-21 08:45 | NUR ---
PTE FEMENIAN DE 59 YRS ALERTA CONCIENTE Y TRANQUILA EN CAMA CON BARBADAS ELEVADA,SE LE CHERYL S/V Y SE DOCIUEMTA. SE MANIENE CONSULTADO CONE EL DR WESTFALL SE MANTIENE BAJO OBSERVCION.
[2024-12-21] MEDS ORDERED: LEVALBUTEROL HCL 1.25 MG/3 ML SOLUTION IH ONE (15:36)
[2024-12-21] MEDS ORDERED: FAMOTIDINE/PF 20 MG/2 ML VIAL IV PUSH SCH (16:52)
[2024-12-21] MEDS ORDERED: ENOXAPARIN SODIUM 40 MG/0.4 ML SYRINGE SUBCUTANEO SCH (16:52)
[2024-12-21] MEDS ORDERED: LACTOBACILLUS ACIDOPHILUS 1 CAP CAP PO SCH (17:00)
[2024-12-21] MEDS ORDERED: ONDANSETRON HCL 2 MG/ML VIAL IV PRN (17:00)
[2024-12-21] MEDS ORDERED: FAMOTIDINE/PF 20 MG/2 ML VIAL ONE (18:19)
[2024-12-21] MEDS ORDERED: LACTOBACILLUS ACIDOPHILUS 1 CAP CAP PO ONE (18:19)
[2024-12-21] MEDS ORDERED: ENOXAPARIN SODIUM 40 MG/0.4 ML SYRINGE SUBCUTANEO ONE (18:19)
[2024-12-21 19:15] VITALS: BP 137/79; O2SAT 96
[2024-12-21 21:42] VITALS: BP 128/66
[2024-12-22 02:12] VITALS: BP 154/64; O2SAT 99
[2024-12-22 08:03] LABS: ERYTHROCYTE SEDIMENTATION RATE 20 mm/hr (0-30)
[2024-12-22 08:06] LABS: INR 0.97
[2024-12-22 08:12] LABS: BASO % 0.3 % (0.1-1.2); EOS # 0.18 (0.04-0.54); EOS % 2.7 % (0.7-7.0); LYMPH # 0.87 (1.18-3.74); LYMPH % 13.2 % (19.3-53.1); MEAN PLATELET VOLUME 9.90 fl (9.4-12.4); MONO # 0.61 (0.24-0.82); MONO % 9.3 % (4.7-12.5); NEUT # 4.87 (1.56-6.13); NEUT % 74.0 % (34.0-71.1); RED CELL DISTRIBUTION WIDTH 14.8 % (11.6-14.4)
[2024-12-22 08:37] LABS: ALT/SGPT 24 U/L (12-78); AST/SGOT 9 U/L (15-37); BILIRUBIN TOTAL 0.25 mg/dL (0.3-1.2); BUN CREA RATIO 26 (7.0-25.0); CHOL HDL RATIO 4.7 (0-5.0); CREATININE SERUM 0.54 mg/dL (0.55-1.02); GFR 115.55; GLOBULINA 3.1 G/DL (2.4-3.5); GLUCOSE FASTING 105 mg/dL (65-100); HDL 35 mg/dl (40-60); LDL 102 mg/dl (0-130); OSMOLALITY SERUM 290 MOSM/KG (275-295); VLDL 27 (0-39)
[2024-12-22] MEDS ORDERED: AMLODIPINE BESYLATE 5 MG TABLET PO SCH (09:00)
[2024-12-22] MEDS ORDERED: PATIENTS OWN MEDICATION (MEDICAMENTO EN PISO) PO SCH (09:00)
[2024-12-22 10:50] LABS: TSH 1.450 uIU/mL (0.358-3.74)
[2024-12-22 10:50] LABS: URINE APPEARANCE Clear; URINE BILIRRUBIN Negative (NEGATIVE); URINE BLOOD Negative; URINE COLOR Yellow; URINE GLUCOSE Negative (NEGATIVE); URINE KETONE Negative (NEGATIVE); URINE LEUKOCYTE Negative; URINE NITRATE Negative; URINE PROTEIN Negative (NEGATIVE); URINE UROBILINOGEN 0.2 E.U./dl
[2024-12-22 10:54] LABS: URINE BACTERIA 5.9 uL (0.0-1933)
[2024-12-22 11:10] LABS: URINE CAST 0.00 uL (0.0-1.40); URINE EPITHELIAL CELLS 1.0 uL (0.0-38.8); URINE RBC 1.1 uL (0.0-20.8); URINE WBC 1.0 uL (0.0-23.2)
[2024-12-22 11:14] VITALS: BP 145/78; O2SAT 100
[2024-12-22 19:11] VITALS: BP 148/67
[2024-12-23 02:48] VITALS: BP 129/80; O2SAT 97
[2024-12-23 10:52] VITALS: BP 123/70; O2SAT 97
[2024-12-24 01:28] VITALS: BP 115/66; O2SAT 94
[2024-12-24 06:11] LABS: BASO % 0.6 % (0.1-1.2); EOS # 0.23 (0.04-0.54); EOS % 3.7 % (0.7-7.0); LYMPH # 1.03 (1.18-3.74); LYMPH % 16.6 % (19.3-53.1); MEAN PLATELET VOLUME 9.80 fl (9.4-12.4); MONO # 0.63 (0.24-0.82); MONO % 10.2 % (4.7-12.5); NEUT # 4.24 (1.56-6.13); NEUT % 68.6 % (34.0-71.1); RED CELL DISTRIBUTION WIDTH 14.6 % (11.6-14.4)
[2024-12-24 06:46] LABS: ALT/SGPT 23 U/L (12-78); AST/SGOT 14 U/L (15-37); BILIRUBIN TOTAL 0.28 mg/dL (0.3-1.2); BUN CREA RATIO 34 (7.0-25.0); CREATININE SERUM 0.47 mg/dL (0.55-1.02); GFR 135.63; GLOBULINA 3.1 G/DL (2.4-3.5); GLUCOSE FASTING 97 mg/dL (65-100); OSMOLALITY SERUM 288 MOSM/KG (275-295)
[2024-12-24 08:21] VITALS: BP 127/69; O2SAT 98
[2024-12-24] MEDS ORDERED: LEVALBUTER0.63 MG/3 IH (08:49)
[2024-12-24] MEDS ORDERED: INTESTINEX680 M1 PO (08:50)
== END 2024-12-24 10:13 | disposition home or self-care (01) | DRG 193 ==
LOC: ER 23:08 → MEDJ 12-21 18:18
PROVIDERS: General Practice; Internal Medicine Infectious Disease; ADMIT Internal Medicine; ATTEND Internal Medicine
PROC: BB24YZZ Computerized Tomography (CT Scan) of Bilateral Lungs using Other Contrast (ICD-10-PCS; principal; 2024-12-21)
PROC: 3E0F7GC Introduction of Other Therapeutic Substance into Respiratory Tract, Via Natural or Artificial Opening (ICD-10-PCS; 2024-12-21)
PROC: 02HV33Z Insertion of Infusion Device into Superior Vena Cava, Percutaneous Approach (ICD-10-PCS; 2024-12-23)
PROC: B548ZZA Ultrasonography of Superior Vena Cava, Guidance (ICD-10-PCS; 2024-12-23)
DX: J18.0 Bronchopneumonia, unspecified organism (principal); J85.1 Abscess of lung with pneumonia; J90 Pleural effusion, not elsewhere classified; I10 Essential (primary) hypertension; Z87.891 Personal history of nicotine dependence